=== PATIENT | female | born 1990 | race Two or more races ===

== ENCOUNTER 2024-01-21 08:59 | Outpatient (CLI) | payer OTHER ==
[2024-01-21 09:57] LABS: PH,URINE 5.5 (5.0-8.0); URINE APPEARANCE Clear; URINE BILIRRUBIN Negative (NEGATIVE); URINE BLOOD Negative; URINE COLOR Yellow; URINE GLUCOSE Negative (NEGATIVE); URINE LEUKOCYTE Negative; URINE NITRATE Positive; URINE PROTEIN Negative (NEGATIVE); URINE UROBILINOGEN 0.2 E.U./dl
[2024-01-21 09:58] LABS: URINE EPITHELIAL CELLS 23.4 uL (0.0-38.8); URINE RBC 3.7 uL (0.0-20.8); URINE WBC 17.9 uL (0.0-23.2)
[2024-01-21 09:59] LABS: HEMATOCRIT 34.4 % (36.0-45.00); HEMOGLOBIN 11.7 g/dL (12.0-15.00); MEAN CELL VOLUME 84.1 fL (80.00-100.00); MEAN CORPUSCULAR HEMOGLOBIN 28.6 pg (27.00-32.0); PLATELET COUNT 279 K/uL (150-450); RED BLOOD COUNT 4.09 M/uL (4.00-6.00); RED CELL DISTRIBUTION WIDTH 15.8 % (11.5-14.5)
[2024-01-21 10:02] LABS: URINE BACTERIA > 9821.5 uL (0.0-1933)
[2024-01-21 10:18] LABS: INR 1.02; PARTIAL THROMBOPLASTIN TIME 30.2 SECONDS (22.0-34.0)
[2024-01-21 10:20] LABS: PROTHROMBIN TIME 10.7 SECONDS (9.0-11.5)
[2024-01-21 10:23] LABS: ALBUMIN 4.2 gm/dL (3.4-5.0); BILIRUBIN TOTAL 0.74 mg/dL (0.3-1.2); CALCIUM 9.6 mg/dL (8.5-10.1); CREATININE SERUM 0.65 mg/dL (0.55-1.02); GFR 106.31; GLOBULINA 3.9 G/DL (2.4-3.5); POTASSIUM 4.01 mEq/L (3.5-5.1); TOTAL PROTEIN 8.1 gm/dL (6.4-8.2)
[2024-01-21 10:39] LABS: COL EPI 134 SECONDS (82-175)
== END 2024-01-21 09:08 | disposition home or self-care (01) ==
LOC: LAB 08:59
PROVIDERS: ATTEND Orthopaedic Surgery
DX: D64.9 Anemia, unspecified (principal); E88.89 Other specified metabolic disorders; D68.8 Other specified coagulation defects; N39.0 Urinary tract infection, site not specified; E11.9 Type 2 diabetes mellitus without complications; Z22.322 Carrier or suspected carrier of Methicillin resistant Staphylococcus aureus; Z76.89 Persons encountering health services in other specified circumstances; I10 Essential (primary) hypertension

== ENCOUNTER 2024-03-03 08:34 | Outpatient (CLI) | payer OTHER | END 2024-03-03 08:39 | disposition home or self-care (01) | LOC: RAD 08:34 | DX: R07.9 Chest pain, unspecified (principal) ==

== ENCOUNTER 2024-05-25 16:26 | Outpatient (CLI) | payer OTHER | END 2024-05-25 16:28 | disposition home or self-care (01) | LOC: RAD 16:26 | PROVIDERS: ATTEND Pediatrics Neonatal-Perinatal Medicine | DX: S42.001A Fracture of unspecified part of right clavicle, initial encounter for closed fracture (principal) ==

== ENCOUNTER 2024-11-23 15:27 | Outpatient (CLI) | payer OTHER | END 2024-11-23 15:29 | disposition home or self-care (01) | LOC: RAD 15:27 | PROVIDERS: ATTEND Pediatrics Neonatal-Perinatal Medicine | DX: R07.9 Chest pain, unspecified (principal) ==